=== PATIENT | female | born 1960 | race Caucasian/White ===

== ENCOUNTER 2022-06-04 12:54 | Emergency (ER) | payer BC ==
[2022-06-04] MEDS ORDERED: Ibuprofen 800 MG TAB ONE (13:55)
== END 2022-06-04 15:00 | disposition home or self-care (01) ==
LOC: MADERS 12:54
DX: M25.562 Pain in left knee (principal); I10 Essential (primary) hypertension; Z79.899 Other long term (current) drug therapy